=== PATIENT | female | born 1995 | race Caucasian/White ===

== ENCOUNTER 2017-05-14 12:09 | Emergency (ER) | payer OTHER ==
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
[2017-05-14 13:10] VITALS: BMI 25.7
[2017-05-14 13:29] VITALS: BP 102/69; PULSE 82; RESP 17; TEMP 98.2; O2SAT 98
== END 2017-05-14 13:30 | disposition home or self-care (01) ==
LOC: ED 12:09
DX: Z04.1 Encounter for examination and observation following transport accident (principal)